=== PATIENT | male | born 2000 | race Caucasian/White ===

== ENCOUNTER 2018-06-26 09:46 | Emergency (ER) | payer OTHER ==
[~2018-06-26] VITALS: Ht 160 cm; Wt 85.0 kg
[~2018-06-26 09:46] MED LIST: ACET325T33 PO; IBUP-1542 PO; ONDA4TAB8 PO
[2018-06-26 10:24] VITALS: BP 141/68; PULSE 102; RESP 20; Ht 160 cm; Wt 85.0 kg
[2018-06-26] MEDS ORDERED: ACETAMINOPHEN 500 MG TAB PO STA (10:34)
[2018-06-26] MEDS ORDERED: IBUPROFEN 600 MG TAB PO ONE (11:00)
[2018-06-26] MEDS ORDERED: IBUP800T48 PO (11:07)
[2018-06-26] MEDS ORDERED: ACET325T33 PO (11:07)
--- NOTE | 2018-06-26 11:26 | ERD ---
ER Documentation Chief Complaint Chief Complaint complains of feve x 3 days HPI 18-year-old male presenting with fever times 3 days. Patient had a productive cough. He has had a sore throat with nasal congestion and diffuse weakness. Has not taken medications today. Denies vomiting. Denies abdominal pain. Sy es urination bowel movement. Denies medical problems. NKDA. Surgical history denies. Social history denies ROS All systems reviewed and are negative except as per history of present illness. Medications Home Meds Active Scripts Acetaminophen* (Tylenol*) 325 Mg Tablet, 2 TAB PO Q8 PRN for PAIN AND OR ELEVATED TEMP, #20 TAB Prov:HANG AMIN PA-C 06/26/18 Ibuprofen* (Motrin*) 800 Mg Tab, 800 MG PO Q6, #30 TAB Prov:HANG AMIN PA-C 06/26/18 Ondansetron Hcl* (Zofran*) 4 Mg Tablet, 4 MG PO Q6H for NAUSEA AND/OR VOMITING, #30 TAB Prov:HANG AMIN PA-C 11/01/15 Acetaminophen* (Tylenol*) 325 Mg Tablet, 2 TAB PO Q8 PRN for PAIN AND OR ELEVATED TEMP, #20 TAB Prov:HANG AMIN PA-C 11/01/15 Ibuprofen* (Motrin*) 600 Mg Tab, 600 MG PO Q6, #30 TAB Prov:HANG AMIN PA-C 11/01/15 Allergies Allergies: Coded Allergies: No Known Drug Allergies (Verified Allergy, 06/02/13) PMhx/Soc History of Surgery: No Anesthesia Reaction: No Hx Neurological Disorder: No Hx Respiratory Disorders: No Hx Cardiac Disorders: No Hx Psychiatric Problems: No Hx Miscellaneous Medical Probl: No Hx Alcohol Use: No Hx Substance Use: No Hx Tobacco Use: No Smoking Status: Never smoker FmHx Family History: No diabetes, No coronary disease, No other Physical Exam Vitals Vital Signs Date Temp Pulse Resp B/P (MAP) Pulse Ox O2 O2 Flow FiO2 Time Delivery Rate 06/26/18 100.9 102 20 141/68 98 10:24 (92) Physical Exam GENERAL: The patient is well-appearing, well-nourished, in no acute distress HEENT: Atraumatic. Conjunctivae are pink. Pupils equal, round, and reactive to light. There is no scleral icterus. Tympanic membranes clear bilaterally. Oropharynx clear. NECK: C-spine is soft and supple. There is no meningismus. There is no cervi desiree lymphadenopathy. CHEST: Clear to auscultation bilaterally. There are no rales, wheezes or rhonchi. HEART: Regular rate and rhythm. No murmurs, clicks, rubs or gallops. ABDOMEN:Soft, nontender and nondistended. Good bowel sounds. No rebound or gua rding. No gross peritonitis. No gross organomegaly or masses. Results 24 hrs Current Medications Medications Dose Sig/Melanie Start Time Status Last (Trade) Ordered Route PRN Stop Time Admin Dose Reason Admin Ibuprofen 600 mg ONCE ONCE 06/26/18 DC 06/26/18 (Motrin) PO 11:00 10:45 06/26/18 11:01 1,000 mg ONCE STAT 06/26/18 DC 06/26/18 Acetaminophen PO 10:34 10:45 (Tylenol 06/26/18 10:36 Tab) Procedures/MDM DIAGNOSTIC IMAGING REPORT Patient: ABDI GARZA : 2000 Age: 18 Sex: M MR #: [id number] DOS: 06/26/18 1034 Ordering MD: TOSHIA AMIN PA-C Location: [facility] Room/Bed: PROCEDURE: XR Chest. CLINICAL INDICATION: Cough, fever TECHNIQUE: Single frontal view of the chest was obtained COMPARISON: None FINDINGS: The heart and mediastinum are within normal limits. The lungs are clear. There is no pleural effusion or pneumothorax. RPTAT: AA IMPRESSION: No acute disease. MDM: 18-year-old male presenting with fever. Patient's chest x-ray is within normal limits. I have low suspicion for pneumonia. I have low suspicion for bacterial [employer] infection. Patient is discharged stricter precautions and told to follow-up with primary care within 1-2 days for close evaluation. Patient is told if symptoms change or worsen to return the ER immediately. All questions answered at discharge Departure Diagnosis: Primary Impression: Viral syndrome Additional Impression: Fever Condition: Stable Patient Instructions: Fever Control (Adult), Influenza (Adult) Referrals: COMMUNITY CLINICS YOU HAVE RECEIVED A MEDICAL SCREENING EXAM AND THE RESULTS INDICATE THAT YOU DO NOT HAVE A CONDITION THAT REQUIRES URGENT TREATMENT IN THE EMERGENCY DEPARTMENT. FURTHER EVALUATION AND TREATMENT OF YOUR CONDITION CAN WAIT UNTIL YOU ARE SEEN IN YOUR DOCTORS OFFICE WITHIN THE NEXT 1-2 DAYS. IT IS YOUR RESPONSIBILITY TO MAKE AN APPOINTMENT FOR FOLOW-UP CARE. IF YOU HAVE A PRIMARY DOCTOR --you should call your primary doctor and schedule an appointment IF YOU DO NOT HAVE A PRIMARY DOCTOR YOU CAN CALL OUR PHYSICIAN REFERRAL HOTLINE AT IF YOU CAN NOT AFFORD TO SEE A PHYSICIAN YOU CAN CHOSE FROM THE FOLLOWING [facility] [address] [facility] [address] [facility] [facility] [address] [facility] [address] [facility] [facility] [address] [facility]. [facility]. [address] [place] Additional Instructions: FOLLOW UP WITH YOUR PRIMARY CARE PHYSICIAN TOMORROW.Return to this facility if you are not improving as expected. HANG AMIN PA-C Jun 26, 2018 11:26
== END 2018-06-26 11:42 | disposition home or self-care (01) ==
LOC: FTE 09:46
DX: B34.9 Viral infection, unspecified (principal)
CPT/HCPCS: 71045; Z7502; Z7610